=== PATIENT | female | born 1955 | race Caucasian/White ===

== ENCOUNTER 2024-01-04 07:11 | Day surgery (SDC) | payer BC ==
[~2024-01-04 07:11] MED LIST: Sodium Chloride 0.9% 10 ML Syringe FLUSH PRN; Sodium Chloride 0.9% 2.5 ML Syringe FLUSH PRN; Sodium Chloride 0.9% 20 ML SDV IV PRN
[2024-01-04] MEDS: Lactated Ringers 1,000 ML IV SCH (07:37)
[2024-01-04] MEDS ORDERED: propofoL 50 ML ONE (08:30)
== END 2024-01-04 10:15 | disposition home or self-care (01) ==
LOC: MW.SDS 07:11
PROVIDERS: ATTEND Surgery
DX: D12.5 Benign neoplasm of sigmoid colon (principal); D12.2 Benign neoplasm of ascending colon; D12.3 Benign neoplasm of transverse colon; K21.00 Gastro-esophageal reflux disease with esophagitis, without bleeding; K44.9 Diaphragmatic hernia without obstruction or gangrene; I10 Essential (primary) hypertension; E78.00 Pure hypercholesterolemia, unspecified; Z79.899 Other long term (current) drug therapy
CPT/HCPCS: 43239; 45380; 45385; J2704; J7120